=== PATIENT | male | born 1955 | race Hispanic/Latino ===

== ENCOUNTER 2022-08-13 17:03 | Emergency (ER) | payer OTHER ==
[~2022-08-13] VITALS: Ht 172.7 cm; Wt 81.6 kg
[2022-08-13] MEDS ORDERED: IBUPROFEN 600 MG TAB PO STA (17:27)
[2022-08-13] MEDS ORDERED: ACETAMINOPHEN 325 MG TAB PO ONE (17:30)
[2022-08-13] MEDS ORDERED: ACETAMINOPHEN 325 MG TAB ONE (17:46)
[2022-08-13] MEDS ORDERED: IBUPROFEN 600 MG TAB ONE (17:46)
[2022-08-13] MEDS ORDERED: ONDANSETRON HCL INJ 2MG/ML 2ML 2 MG/ML VIAL IV STA (18:04)
[2022-08-13] MEDS ORDERED: SODIUM CHLORIDE 0.9% 1000ML 1,000 ML IV ONE (18:15)
[2022-08-13 18:25] LABS: BASOPHILS % 0.2 % (0.0-1.0); HEMOGLOBIN 13.3 g/dL (14.0-18.0); LYMPHOCYTES # (AUTO) 0.3 (1.0-3.2); LYMPHOCYTES % 2.2 % (18.0-39.1); MEAN CORPUSCULAR HEMOGLOBIN 30.3 pg (28-32); MEAN CORPUSCULAR HGB CONC 34.1 g/dL (31-35); MEAN CORPUSCULAR VOLUME 88.8 fL (81-99); MONOCYTES # (AUTO) 0.6 (0.2-0.8); MONOCYTES % 4.5 % (4.4-11.3); NEUTROPHILS # (AUTO) 12.9 (2.1-6.9); NEUTROPHILS % 92.7 % (38.7-80.0); PLATELET COUNT 184 x10e3/uL (140-360); RED BLOOD COUNT 4.39 x10e6/uL (4.3-5.7); RED CELL DISTRIBUTION WIDTH 12.8 % (11.7-14.4)
[2022-08-13 18:38] LABS: CLARITY,URINE CLEAR (CLEAR); COLOR,URINE YELLOW (YELLOW); KETONES,URINE NEGATIVE (NEGATIVE); LEUKOCYTE ESTERASE ,URINE NEGATIVE (NEGATIVE); NITRITE,URINE NEGATIVE (NEGATIVE); PROTEIN,URINE DIPSTICK 1+ (NEGATIVE); URINE UROBILINOGEN 0.2 mg/dL (0.2 - 1)
[2022-08-13 18:45] LABS: ALANINE AMINOTRANSFERASE 13 IU/L (0-55); ALBUMIN/GLOBULIN RATIO 1.2 (0.8-2.0); ALKALINE PHOSPHATASE 85 IU/L (40-150); ANION GAP 14.8 mmol/L (8-16); BLOOD UREA NITROGEN 23 mg/dL (7-26); BUN/CREATININE RATIO 21 (6-25); CALCIUM 9.4 mg/dL (8.4-10.2); CARBON DIOXIDE 24 mmol/L (22-29); CHLORIDE 104 mmol/L (98-107); CREATINE KINASE 90 IU/L (30-200); CREATININE, SERUM 1.12 mg/dL (0.72-1.25); GLUCOSE 105 mg/dL (74-118); POTASSIUM 3.8 mmol/L (3.5-5.1); SODIUM 139 mmol/L (136-145)
[2022-08-13 18:47] LABS: EPITHELIAL CELLS,URINE FEW /LPF; RBC,URINE 0-5 /HPF (0-5)
[2022-08-13] MEDS ORDERED: CEFDINIR300 MG PO (20:19)
[2022-08-13] MEDS ORDERED: ONDANSETRON ODT4 MG PO (20:19)
[2022-08-13 21:10] VITALS: BP 131/83
== END 2022-08-13 21:05 | disposition home or self-care (01) ==
LOC: ER 17:06
DX: N39.0 Urinary tract infection, site not specified (principal); R11.10 Vomiting, unspecified; R19.7 Diarrhea, unspecified; I10 Essential (primary) hypertension; Z20.822 Contact with and (suspected) exposure to COVID-19
CPT/HCPCS: 36415; 71045; 74177; 80053; 81001; 82550; 82553; 83605; 83690; 84484; 85025; 87040; 93005; 99284; J0696; J2405; J7030

== ENCOUNTER 2024-01-18 16:55 | Emergency (ER) | payer MEDICARE ==
[~2024-01-18] VITALS: Ht 172.7 cm; Wt 81.6 kg
[~2024-01-18 16:55] MED LIST: CEFDINIR300 MG PO; ONDANSETRON ODT4 MG PO
[2024-01-18 18:11] LABS: BASOPHILS % 0.6 % (0.0-1.0); EOSINOPHILS # (AUTO) 0.1 (0.0-0.4); HEMATOCRIT 41.3 % (38.2-49.6); HEMOGLOBIN 13.8 g/dL (14.0-18.0); LYMPHOCYTES # (AUTO) 1.3 (1.0-3.2); LYMPHOCYTES % 19.4 % (18.0-39.1); MEAN CORPUSCULAR HEMOGLOBIN 30.1 pg (28-32); MEAN CORPUSCULAR HGB CONC 33.4 g/dL (31-35); MEAN CORPUSCULAR VOLUME 90.2 fL (81-99); MONOCYTES # (AUTO) 0.8 (0.2-0.8); MONOCYTES % 11.3 % (4.4-11.3); NEUTROPHILS # (AUTO) 4.6 (2.1-6.9); NEUTROPHILS % 66.4 % (38.7-80.0); PLATELET COUNT 227 x10e3/uL (140-360); RED BLOOD COUNT 4.58 x10e6/uL (4.3-5.7); RED CELL DISTRIBUTION WIDTH 13.7 % (11.7-14.4)
[2024-01-18 18:25] LABS: ALBUMIN 4.3 g/dL (3.5-5.0); ALBUMIN/GLOBULIN RATIO 1.3 (0.8-2.0); ANION GAP 16.4 mmol/L (8-16); BILIRUBIN,TOTAL 0.7 mg/dL (0.2-1.2); CALCIUM 9.5 mg/dL (8.4-10.2); CREATININE, SERUM 2.35 mg/dL (0.72-1.25); POTASSIUM 4.4 mmol/L (3.5-5.1); TOTAL PROTEIN 7.7 g/dL (6.5-8.1)
[2024-01-18 18:26] LABS: BILIRUBIN,URINE SMALL (NEGATIVE); CLARITY,URINE SL CLOUDY (CLEAR); COLOR,URINE YELLOW (YELLOW); GLUCOSE, URINE NEGATIVE (NEGATIVE); KETONES,URINE 1+ (NEGATIVE); LEUKOCYTE ESTERASE ,URINE NEGATIVE (NEGATIVE); NITRITE,URINE NEGATIVE (NEGATIVE); PH,URINE 5.5 (5 - 7); PROTEIN,URINE DIPSTICK 1+ (NEGATIVE); URINE UROBILINOGEN 0.2 mg/dL (0.2 - 1)
[2024-01-18 18:34] LABS: AMORPHOUS SEDIMENT,URINE MODERATE (FEW); BACTERIA,URINE MODERATE /HPF; SPERM,URINE PRESENT
[2024-01-18] MEDS: SODIUM CHLORIDE 0.9% 1000ML 1,000 ML IV ONE ×2 (18:44→19:36)
[2024-01-18] MEDS: ONDANSETRON HCL INJ 2MG/ML 2ML 2 MG/ML VIAL IV STA (18:44)
[2024-01-18] MEDS: ACETAMINOPHEN 325 MG TAB PO ONE (18:44)
[2024-01-18 20:46] LABS: CREATININE, SERUM 1.73 mg/dL (0.72-1.25)
[2024-01-18 20:56] VITALS: PULSE 78; RESP 18; TEMP 98.5; O2SAT 99
== END 2024-01-18 21:07 | disposition home or self-care (01) ==
LOC: ER 17:00
DX: R42 Dizziness and giddiness (principal); T67.5XXA Heat exhaustion, unspecified, initial encounter; E86.0 Dehydration; Z11.52 Encounter for screening for COVID-19; R94.31 Abnormal electrocardiogram [ECG] [EKG]
CPT/HCPCS: 36415; 70450; 80048; 80053; 81001; 84484; 85025; 93005; 99283; J2405; J7030; U0002

== ENCOUNTER 2024-02-24 09:59 | Emergency (ER) | payer MEDICARE ==
[~2024-02-24] VITALS: Ht 172.7 cm; Wt 80.7 kg
[2024-02-24] MEDS: SODIUM CHLORIDE 0.9% 1000ML 1,000 ML IV STA (10:36)
[2024-02-24] MEDS: KETOROLAC TROMETHAMINE 30 MG/ML VIAL IV STA (10:37)
[2024-02-24 11:47] LABS: INR 1.09; PROTHROMBIN TIME 14.7 seconds (11.9-14.5)
[2024-02-24 11:48] LABS: PARTIAL THROMBOPLASTIN TIME 28.9 seconds (23.8-35.5)
[2024-02-24 11:54] LABS: BASOPHILS % 0.5 % (0.0-1.0); EOSINOPHILS # (AUTO) 0.2 (0.0-0.4); EOSINOPHILS % 2.5 % (0.0-6.0); HEMATOCRIT 37.8 % (38.2-49.6); LYMPHOCYTES # (AUTO) 0.9 (1.0-3.2); MEAN CORPUSCULAR HEMOGLOBIN 29.5 pg (28-32); MEAN CORPUSCULAR HGB CONC 31.7 g/dL (31-35); MEAN CORPUSCULAR VOLUME 92.9 fL (81-99); MONOCYTES # (AUTO) 0.4 (0.2-0.8); MONOCYTES % 7.1 % (4.4-11.3); NEUTROPHILS # (AUTO) 4.5 (2.1-6.9); NEUTROPHILS % 74.6 % (38.7-80.0); PLATELET COUNT 239 x10e3/uL (140-360); RED BLOOD COUNT 4.07 x10e6/uL (4.3-5.7); RED CELL DISTRIBUTION WIDTH 12.8 % (11.7-14.4); WHITE BLOOD COUNT 6.08 x10e3/uL (4.8-10.8)
[2024-02-24 11:55] LABS: ALANINE AMINOTRANSFERASE 14 IU/L (0-55); ALBUMIN 3.4 g/dL (3.5-5.0); ALKALINE PHOSPHATASE 87 IU/L (40-150); ANION GAP 14.1 mmol/L (8-16); BILIRUBIN,TOTAL 0.7 mg/dL (0.2-1.2); BLOOD UREA NITROGEN 14 mg/dL (7-26); BUN/CREATININE RATIO 15 (6-25); CALCIUM 8.8 mg/dL (8.4-10.2); CARBON DIOXIDE 24 mmol/L (22-29); CHLORIDE 104 mmol/L (98-107); CREATININE, SERUM 0.94 mg/dL (0.72-1.25); EST GLOMERULAR FILTRATION RATE 88 ML/MIN (>=60); GLUCOSE 93 mg/dL (74-118); LIPASE 33 U/L (8-78); MAGNESIUM 1.9 MG/DL (1.3-2.1); POTASSIUM 4.1 mmol/L (3.5-5.1); SODIUM 138 mmol/L (136-145); TOTAL PROTEIN 6.8 g/dL (6.5-8.1)
[2024-02-24 12:03] LABS: TROPONIN I < 0.001 ng/mL (0-0.300)
[2024-02-24 12:12] LABS: COLOR,URINE YELLOW (YELLOW)
[2024-02-24 12:13] LABS: BILIRUBIN,URINE NEGATIVE (NEGATIVE); CLARITY,URINE CLEAR (CLEAR); GLUCOSE, URINE NEGATIVE (NEGATIVE); KETONES,URINE NEGATIVE (NEGATIVE); LEUKOCYTE ESTERASE ,URINE NEGATIVE (NEGATIVE); NITRITE,URINE NEGATIVE (NEGATIVE); PH,URINE 7 (5 - 7); PROTEIN,URINE DIPSTICK NEGATIVE (NEGATIVE); URINE UROBILINOGEN 1 mg/dL (0.2 - 1)
[2024-02-24 12:22] LABS: WBC,URINE (MAN) 0-5 /HPF (0-5)
[2024-02-24 12:23] LABS: EPITHELIAL CELLS,URINE FEW /LPF
[2024-02-24] MEDS ORDERED: IOPAMIDOL 370 MG/ML 100 ML INFUS..BTL INJ ONE (13:04)
[2024-02-24] MEDS: ONDANSETRON HCL INJ 2MG/ML 2ML 2 MG/ML VIAL IV STA (14:56)
[2024-02-24 16:08] VITALS: PULSE 60; RESP 18; TEMP 98.4; O2SAT 99
== END 2024-02-24 19:02 | disposition other institution (70) ==
LOC: ER 10:05
DX: R07.89 Other chest pain (principal); J90 Pleural effusion, not elsewhere classified; R10.11 Right upper quadrant pain; I10 Essential (primary) hypertension; E78.5 Hyperlipidemia, unspecified; Z11.52 Encounter for screening for COVID-19; R94.31 Abnormal electrocardiogram [ECG] [EKG]
CPT/HCPCS: 36415; 71260; 74177; 80053; 81001; 83690; 83735; 84484; 85025; 85610; 85730; 87040; 87400; 93005; 99284; J0456; J0696; J1885; J7030; J7050; Q9967; U0002